=== PATIENT | male | born 1970 | race Two or more races ===

== ENCOUNTER 2017-04-13 21:31 | Emergency (ER) | payer OTHER ==
[~2017-04-13] VITALS: Ht 177.8 cm; Wt 87.7 kg
[2017-04-13 23:21] LABS: HEMATOCRIT 44.1 % (39.2-51.8); HEMOGLOBIN 15.1 g/dL (13.7-18.0); WHITE BLOOD COUNT 9.3 x10^3/uL (3.4-10)
[2017-04-13 23:27] LABS: ASPARTATE AMINO TRANSFERASE 23 U/L (15-37); BLOOD UREA NITROGEN 25 mg/dL (7-18)
[2017-04-13] MEDS ORDERED: HYDROcodone/APAP 5/325 TABLET ONE (23:58)
[2017-04-14] MEDS ORDERED: HYDROcodone/APAP 5/325 TABLET PO ONE
[2017-04-14 00:01] VITALS: BP 121/83
== END 2017-04-14 00:51 | disposition home or self-care (01) ==
LOC: ED 04-14 00:45
DX: K80.70 Calculus of gallbladder and bile duct without cholecystitis without obstruction (principal); F17.200 Nicotine dependence, unspecified, uncomplicated
CPT/HCPCS: 36415; 76700; 80053; 81003; 83690; 85025; 99285

== ENCOUNTER 2017-05-24 17:16 | Inpatient (IN) | payer OTHER ==
[~2017-05-24] VITALS: Ht 177.8 cm; Wt 83.7 kg
[2017-05-24 18:08] LABS: BASOPHILS # (AUTO) 0.03 x10^3/uL (0-0.1); BASOPHILS % (AUTO) 0 % (0-1); EOSINOPHILS # (AUTO) 0.11 x10^3/uL (0-0.4); EOSINOPHILS % (AUTO) 1 % (1-7); LYMPHOCYTES # (AUTO) 2.47 x10^3/uL (1-3.4); LYMPHOCYTES % (AUTO) 28 % (22-44); MD NO; MEAN CORPUSCULAR HEMOGLOBIN 33.7 pg (27.5-34.5); MEAN CORPUSCULAR HGB CONC 33.9 g/dL (33.2-36.2); MEAN CORPUSCULAR VOLUME 99.4 fL (81-97); MEAN PLATELET VOLUME 7.5 fL (7.4-10.4); MONOCYTES # (AUTO) 0.77 x10^3/uL (0.2-0.8); MONOCYTES % (AUTO) 9 % (2-9); NEUTROPHILS # (AUTO) 5.47 x10^3/uL (1.8-6.8); NEUTROPHILS % (AUTO) 62 % (42-75); PLATELET COUNT 293 x10^3/uL (130-400); RED BLOOD COUNT 4.41 x10^6/uL (4.38-5.82); RED CELL DISTRIBUTION WIDTH 13.1 % (9.4-14.8)
[2017-05-24 18:14] LABS: ALBUMIN 3.6 g/dL (3.4-5.0); ANION GAP 7 mmol/L (5-15); CALCIUM 8.6 mg/dL (8.5-10.1); CHLORIDE 109 mmol/L (98-107); CREATININE 0.91 mg/dL (0.7-1.3)
[2017-05-24] MEDS ORDERED: SODIUM CHLORIDE FLUSH 10ML SYR IVF ONE (19:00)
[2017-05-24] MEDS ORDERED: GADOBUTROL 10 MMOL/10 ML PFS ONE (19:27)
[2017-05-24] MEDS ORDERED: DEXAMETHASONE 4 MG/ML, 1ML IVPush ONE (21:00)
[2017-05-24] MEDS ORDERED: DEXAMETHASONE 4 MG/ML, 1ML ONE (21:07)
[2017-05-24 21:34] VITALS: BP 127/84
[2017-05-24] MEDS: OCULAR LUBRICANT OPHTH OINT 3.5 GM EACHEYE SCH (23:00)
[2017-05-24] MEDS: DEXAMETHASONE 4 MG/ML, 1ML IVPush SCH (23:00)
[2017-05-24] MEDS ORDERED: POLYETHYLENE GLYCOL 17 GM PACKET PO PRN (23:30)
[2017-05-24] MEDS ORDERED: OXYcodone IR 5MG TABLET PO PRN (23:30)
[2017-05-24] MEDS ORDERED: DOCUSATE 100 MG CAPSULE PO PRN (23:30)
[2017-05-24] MEDS ORDERED: morphine SULFATE 10 MG/ML, 1ML IVPush PRN (23:30)
[2017-05-24] MEDS ORDERED: ENALAPRILAT 1.25 MG/ML, 2ML IVPush PRN (23:30)
[2017-05-24] MEDS ORDERED: ACETAMINOPHEN 325 MG TABLET PO PRN (23:30)
[2017-05-24] MEDS ORDERED: ONDANSETRON 2MG/ML, 2ML IVPush PRN (23:30)
[2017-05-24] MEDS ORDERED: BISACODYL 10 MG SUPP PR PRN (23:30)
[2017-05-24] MEDS ORDERED: hydrALAzine 20 MG/ML, 1ML IVPush PRN (23:30)
[2017-05-25] MEDS: FAMOTIDINE 20 MG/2 ML IVPush SCH ×3 (00:08→20:45)
[2017-05-25 00:29] LABS: FREE T4 (FREE THYROXINE) 0.92 ng/dL (0.76-1.46); THYROID STIMULATING HORMONE 0.792 mIU/L (0.358-3.740)
[2017-05-25 00:49] LABS: HEMOGLOBIN A1C 5.6 % (4.2-6.3)
[2017-05-25 02:38] VITALS: BP 136/75
[2017-05-25] MEDS: OCULAR LUBRICANT OPHTH OINT 3.5 GM EACHEYE SCH ×4 (05:00→23:00)
[2017-05-25 05:32] LABS: BASOPHILS # (AUTO) 0.02 x10^3/uL (0-0.1); BASOPHILS % (AUTO) 0 % (0-1); EOSINOPHILS % (AUTO) 0 % (1-7); LYMPHOCYTES # (AUTO) 1.23 x10^3/uL (1-3.4); LYMPHOCYTES % (AUTO) 17 % (22-44); MD NO; MEAN CORPUSCULAR HEMOGLOBIN 33.5 pg (27.5-34.5); MEAN CORPUSCULAR HGB CONC 33.3 g/dL (33.2-36.2); MEAN CORPUSCULAR VOLUME 100.6 fL (81-97); MEAN PLATELET VOLUME 7.8 fL (7.4-10.4); MONOCYTES # (AUTO) 0.12 x10^3/uL (0.2-0.8); MONOCYTES % (AUTO) 2 % (2-9); NEUTROPHILS # (AUTO) 5.99 x10^3/uL (1.8-6.8); NEUTROPHILS % (AUTO) 81 % (42-75); PLATELET COUNT 282 x10^3/uL (130-400); RED BLOOD COUNT 4.52 x10^6/uL (4.38-5.82); RED CELL DISTRIBUTION WIDTH 13.2 % (9.4-14.8)
[2017-05-25 05:49] LABS: ALBUMIN 3.6 g/dL (3.4-5.0); ANION GAP 7 mmol/L (5-15); CALCIUM 8.9 mg/dL (8.5-10.1); CHLORIDE 110 mmol/L (98-107); CHOLESTEROL, TOTAL 252 mg/dL (140-239)
[2017-05-25 05:54] LABS: ALANINE AMINOTRANSFERASE 27 U/L (12-78); ALKALINE PHOSPHATASE 90 U/L (45-117); BILIRUBIN,TOTAL 0.5 mg/dL (0.2-1.0); CHOL/HDL RATIO 3.5; CREATININE 1.02 mg/dL (0.7-1.3); HDL CHOL % 29 % (26-37); HDL CHOLESTEROL (DIRECT) 72 mg/dL (40-60); LDL CHOLESTEROL,CALCULATED 169 mg/dL (54-169); LDL/HDL RATIO 2.3 (0.5-3.0); TOTAL PROTEIN 7.8 g/dL (6.4-8.2); TRIGLYCERIDES 54 mg/dL (50-200); VLDL CHOLESTEROL 11 mg/dL (0-25)
[2017-05-25] MEDS: DEXAMETHASONE 4 MG/ML, 1ML IVPush SCH ×4 (06:14→23:16)
[2017-05-25 07:39] VITALS: BP 129/84
[2017-05-25 09:17] LABS: MICROSCOPIC NOT IND
[2017-05-25 09:18] LABS: CULTURE INDICATED? NO
[2017-05-25] MEDS ORDERED: LORazepam 2 MG/ML, 1ML IVPush ONE (13:00)
[2017-05-25] MEDS ORDERED: GADOBUTROL 7.5 MMOL/7.5 ML PFS ONE (14:48)
[2017-05-25 17:47] VITALS: BP 147/76
[2017-05-25 20:40] VITALS: BP 136/70
[2017-05-26 04:36] VITALS: BP 133/81
[2017-05-26] MEDS: OCULAR LUBRICANT OPHTH OINT 3.5 GM EACHEYE SCH ×4 (05:00→23:00)
[2017-05-26] MEDS: DEXAMETHASONE 4 MG/ML, 1ML IVPush SCH (05:38)
[2017-05-26] MEDS: FAMOTIDINE 20 MG/2 ML IVPush SCH ×2 (07:42→20:23)
[2017-05-26 07:50] VITALS: BP 128/86
[2017-05-26] MEDS: DEXAMETHASONE 4 MG/ML, 1ML PO SCH ×2 (11:17→17:00)
[2017-05-26 12:49] VITALS: BP 144/88
[2017-05-26] MEDS ORDERED: LIDOCAINE 1%, 20ML ONE (15:34)
[2017-05-26] MEDS ORDERED: DEXAMETHASONE INTENSOL 1 MG/ML ORAL SOL PO SCH (17:00)
[2017-05-26] MEDS: DEXAMETHASONE 4 MG TABLET PO SCH ×2 (17:57→23:05)
[2017-05-26 18:24] LABS: GLUCOSE, CSF 87 mg/dL (40-80); TOTAL PROTEIN,CSF 28 mg/dL (15-45)
[2017-05-26 19:48] VITALS: BP 121/74
[2017-05-27 03:47] VITALS: BP 122/77
[2017-05-27] MEDS: OCULAR LUBRICANT OPHTH OINT 3.5 GM EACHEYE SCH ×2 (05:00→11:00)
[2017-05-27] MEDS: DEXAMETHASONE 4 MG TABLET PO SCH ×2 (05:11→12:20)
[2017-05-27 07:16] VITALS: BP 122/76
[2017-05-27] MEDS: FAMOTIDINE 20 MG/2 ML IVPush SCH (08:34)
[2017-05-27] MEDS ORDERED: FLU VACC QS2017-18 (36MOS+) UP/PF 0.5 ML IM-VACC ONE (09:30)
[2017-05-27] MEDS ORDERED: DEXA2TAB PO (11:45)
[2017-05-27] MEDS ORDERED: FAMO20TA7 PO (11:45)
[2017-05-27] MEDS ORDERED: ERGO500017 PO (11:49)
== END 2017-05-27 12:30 | disposition home or self-care (01) | DRG 55 ==
LOC: ED 18:53 → EDIP 21:28 → 3NW 21:30
PROVIDERS: ADMIT Internal Medicine; ATTEND Internal Medicine
PROC: 009U3ZX Drainage of Spinal Canal, Percutaneous Approach, Diagnostic (ICD-10-PCS; principal; 2017-05-26)
PROC: B01B1ZZ Fluoroscopy of Spinal Cord using Low Osmolar Contrast (ICD-10-PCS; 2017-05-26)
DX: C71.9 Malignant neoplasm of brain, unspecified (principal); D75.89 Other specified diseases of blood and blood-forming organs; E55.9 Vitamin D deficiency, unspecified; Z82.3 Family history of stroke; Z87.891 Personal history of nicotine dependence; Z90.49 Acquired absence of other specified parts of digestive tract
CPT/HCPCS: 36415; 62270; 70450; 70553; 72156; 72157; 72158; 76390; 80048; 80053; 80061; 81003; 82040; 82042; 82306; 82607; 82746; 82784; 82945; 83036; 83735; 83873; 84157; 84439; 84443; 85025; 86618; 86645; 86695; 86696; 86762; 86777; 86778; 89051; 90686; 95819; 96374; A9585; J1100; J3490; J2060; S0028

== ENCOUNTER → 2017-06-04 | Day surgery (SDC) | payer OTHER ==
[~2017-06-04] MED LIST: DEXA2TAB PO; ERGO500017 PO; FAMO20TA7 PO; LIDOCAINE 1%, 20ML ONE
== END ==
LOC: RAD 14:14
PROVIDERS: ATTEND Registered Nurse
DX: G97.1 Other reaction to spinal and lumbar puncture (principal)
CPT/HCPCS: 62270; J3490

== ENCOUNTER 2018-08-21 02:41 | Emergency (ER) | payer OTHER ==
[~2018-08-21] VITALS: Ht 177.8 cm; Wt 90.2 kg
[~2018-08-21 02:41] MED LIST changes: -LIDOCAINE 1%, 20ML ONE
[2018-08-21] MEDS ORDERED: SODIUM CHLORIDE FLUSH 10ML SYR IVF ONE (03:00)
[2018-08-21] MEDS ORDERED: MORPHINE SULFATE 4 MG/ML, 1ML IVPush PRN (03:00)
[2018-08-21] MEDS ORDERED: ONDANSETRON 2MG/ML, 2ML ONE (03:20)
[2018-08-21] MEDS ORDERED: MORPHINE SULFATE 4 MG/ML, 1ML ONE (03:20)
[2018-08-21 03:27] LABS: BASOPHILS # (AUTO) 0.04 x10^3/uL (0-0.1); BASOPHILS % (AUTO) 1 % (0-1); EOSINOPHILS # (AUTO) 0.18 x10^3/uL (0-0.4); EOSINOPHILS % (AUTO) 2 % (1-7); LYMPHOCYTES % (AUTO) 25 % (22-44); MD NO; MEAN CORPUSCULAR HEMOGLOBIN 33.6 pg (27.5-34.5); MEAN CORPUSCULAR HGB CONC 34.3 g/dL (33.2-36.2); MEAN CORPUSCULAR VOLUME 98.2 fL (81-97); MEAN PLATELET VOLUME 7.7 fL (7.4-10.4); MONOCYTES # (AUTO) 0.75 x10^3/uL (0.2-0.8); MONOCYTES % (AUTO) 8 % (2-9); NEUTROPHILS # (AUTO) 5.64 x10^3/uL (1.8-6.8); NEUTROPHILS % (AUTO) 64 % (42-75); PLATELET COUNT 316 x10^3/uL (130-400); RED BLOOD COUNT 4.46 x10^6/uL (4.38-5.82); RED CELL DISTRIBUTION WIDTH 13.3 % (9.4-14.8)
[2018-08-21] MEDS ORDERED: ONDANSETRON 2MG/ML, 2ML IVPush ONE (03:30)
[2018-08-21 03:34] LABS: ALANINE AMINOTRANSFERASE 29 U/L (12-78); ALBUMIN 3.6 g/dL (3.4-5.0); ANION GAP 5 mmol/L (5-15); CALCIUM 8.8 mg/dL (8.5-10.1); CHLORIDE 112 mmol/L (98-107); CREATININE 0.88 mg/dL (0.7-1.3)
[2018-08-21 03:36] LABS: ALKALINE PHOSPHATASE 94 U/L (45-117); BILIRUBIN,TOTAL 0.3 mg/dL (0.2-1.0); TOTAL PROTEIN 7.2 g/dL (6.4-8.2)
[2018-08-21] MEDS ORDERED: GABA300C10 PO (03:38)
[2018-08-21] MEDS ORDERED: HYDR-3237 PO (03:38)
--- NOTE | 2018-08-21 03:45 | NUR ---
PT PLACED ON VITALS MONITORS. IV STARTED. PT MEDICATED WITH ORDERED MEDS. BEDSIDE US DONE.
[2018-08-21 04:20] VITALS: BP 136/88
== END 2018-08-21 04:23 | disposition home or self-care (01) ==
LOC: ED 04:22
DX: K80.20 Calculus of gallbladder without cholecystitis without obstruction (principal); R10.11 Right upper quadrant pain; F17.200 Nicotine dependence, unspecified, uncomplicated
CPT/HCPCS: 36415; 76700; 80053; 83690; 85025; 93005; 96374; 96375; 99284; J2405